=== PATIENT | female | born 1940 | race Caucasian/White ===

== ENCOUNTER 2020-12-22 06:25 | Inpatient (IN) | payer OTHER, MEDICARE ==
[~2020-12-22] VITALS: Ht 162.6 cm; Wt 63.0 kg
[~2020-12-22 06:25] MED LIST: ATOR40TA PO; Cymbalta20 MG PO; GABA300 PO; LISHYD1012 PO; MELO7.5 PO; METF500 PO; SIMV80 PO
--- NOTE | 2020-12-22 06:40 | NUR ---
Ambulatory in Day Surgery. History, Chart, Medications and Allergies reviewed before start of procedure. Lungs clear T/O to Auscultation. Patient confirms NPO status and agrees with scheduled surgery. Pre-Op teaching done. Pt verbalizes understanding.
--- NOTE | 2020-12-22 18:25 | NUR ---
SHIFT SUMMARY PT WAS DROWSY INITIALLY BUT WAS ABLE TO WAKE UP FOR THERAPY. UNFORTUNATLY BECAME DIZZY & VOMITED WHEN THERAPY WORKED WITH HER. PAIN REASONABLY MANAGED. UNABLE TO VOID BLADDER SCAN < 200. IVF CONTINUED.
[2020-12-23 04:11] LABS: BASOPHILS ABSOLUTE AUTO 0.01 K/mm3 (0.00-0.23); BASOPHILS PERCENT AUTO 0 % (0-2); EOSINOPHILS PERCENT AUTO 0 % (0-6); Hematocrit 29.8 % (33.0-51.0); Hemoglobin 9.6 g/dL (11.5-16.0); IMMATURE GRAN ABSOLUTE AUTO 0.02 K/mm3 (0.00-0.10); IMMATURE GRAN PERCENT AUTO 0 % (0-1); LYMPHOCYTES ABSOLUTE AUTO 1.29 K/mm3 (0.84-5.20); LYMPHOCYTES PERCENT AUTO 15 % (21-46); MONOCYTES PERCENT AUTO 10 % (4-13); Mean Corpuscular HGB 29.2 pg (26.0-34.0); Mean Corpuscular HGB Conc 32.2 g/dL (31.5-36.5); Mean Corpuscular Volume 91 fL (80-100); Mean Platelet Volume 10.3 fL (9.1-12.4); NEUTROPHILS ABSOLUTE AUTO 6.62 K/mm3 (1.96-9.15); NEUTROPHILS PERCENT AUTO 75 % (41-73); Platelet Count 194 K/mm3 (150-400); RDW Standard Deviation 46.9 fL (35.1-46.3); Red Blood Cell Count 3.29 M/mm3 (3.80-5.20); White Blood Cell Count 8.84 K/mm3 (4.00-11.30)
[2020-12-23 04:33] LABS: Anion Gap 4 mmol/L (6-16); Blood Urea Nitrogen 19 mg/dL (8-24); Bun/Creatinine Ratio 28.5 (12.0-20.0); CO2, Blood 30 mmol/L (21-32); Calcium, Blood 8.1 mg/dL (8.5-10.1); Chloride, Blood 106 mmol/L (98-108); Creatinine, Blood 0.67 mg/dL (0.40-1.00); Glomerular Filtration Rate >60 (60-); Glucose, Blood 117 mg/dL (70-99); Magnesium, Blood 1.7 mg/dL (1.6-2.4); Potassium, Blood 4.3 mmol/L (3.5-5.5); Sodium, Blood 140 mmol/L (136-145)
--- NOTE | 2020-12-23 06:07 | NUR ---
SHIFT SUMMARY LYING IN SEMI FOWLERS WITH EYES CLOSED. HAS RESTED WELL THIS SHIFT. AA0 X4, ABLE TO FOLLOW ALL COMMANDS. SL PIV FLUIDS AFTER TOLERATING PO INTAKE. CONTINENT OF BOWEL AND BLADDER, ASSISTED WITH AMBULATION TO COMMODE. DENIES N/T TO LEFT ARM, ABLE TO WIGGLE FINGERS, AND GOOD CAP REFILL NOTED. LEFT ARM IMMOBILIZER IN PLACE. DENIES FURTHER NEEDS OR WANTS AT THIS TIME. SAFETY MEASURES IN PLACE. WILL CONTINUE TO MONITOR AND GIVE HAND OFF TO ONCOMING SHIFT USING SBAR.
--- NOTE | 2020-12-23 10:36 | NUR ---
The patient gave me permission to help care for them on 12/23/2020 at 0800.
[2020-12-23] MEDS ORDERED: ACET500 PO (10:45)
[2020-12-23] MEDS ORDERED: OXYC5 PO (10:46)
--- NOTE | 2020-12-23 12:10 | NUR ---
DISCHARGE PT ESCORTED OUT VIA W/C AFTER CLEARING PT & OT. PAIN WELL MANAGED. EATING, DRINKING, & VOIDING EASILY. STEADY GAIT. SCRIPT & DRSGS SENT.
== END 2020-12-23 12:20 | disposition home or self-care (01) | DRG 483 ==
LOC: SURS 06:25 → PRE IP 07:30 → SURS 13:09
PROVIDERS: ADMIT Orthopaedic Surgery
PROC: 0RRK00Z Replacement of Left Shoulder Joint with Reverse Ball and Socket Synthetic Substitute, Open Approach (ICD-10-PCS; principal; 2020-12-22 07:30)
DX: M19.012 Primary osteoarthritis, left shoulder (principal); I10 Essential (primary) hypertension; E78.5 Hyperlipidemia, unspecified
CPT/HCPCS: 36415; 73030; 80048; 82947; 83735; 85025; 88300; 97110; 97116; 97162; 97165; 97530; 97535; A9270; C1713; C1776; J0171; J0690; J0735; J1100; J1170; J1885; J2250; J2370; J2405; J2704; J2710; J2795; J3010; J7120

== ENCOUNTER → 2023-02-14 | Outpatient (CLI) | payer OTHER ==
[~2023-02-14] MED LIST changes: +ACET500 PO; +OXYC5 PO
[2023-02-14 11:44] LABS: BASOPHILS ABSOLUTE AUTO 0.04 K/mm3 (0.00-0.23); BASOPHILS PERCENT AUTO 1 % (0-2); EOSINOPHILS ABSOLUTE AUTO 0.61 K/mm3 (0.00-0.68); EOSINOPHILS PERCENT AUTO 11 % (0-6); Hematocrit 36.7 % (33.0-51.0); Hemoglobin 11.9 g/dL (11.5-16.0); IMMATURE GRAN ABSOLUTE AUTO 0.01 K/mm3 (0.00-0.10); IMMATURE GRAN PERCENT AUTO 0 % (0-1); LYMPHOCYTES ABSOLUTE AUTO 1.57 K/mm3 (0.84-5.20); LYMPHOCYTES PERCENT AUTO 28 % (21-46); MONOCYTES ABSOLUTE AUTO 0.46 K/mm3 (0.16-1.47); MONOCYTES PERCENT AUTO 8 % (4-13); Mean Corpuscular HGB 29.4 pg (26.0-34.0); Mean Corpuscular HGB Conc 32.4 g/dL (31.5-36.5); Mean Corpuscular Volume 91 fL (80-100); Mean Platelet Volume 10.5 fL (9.1-12.4); NEUTROPHILS ABSOLUTE AUTO 2.84 K/mm3 (1.96-9.15); NEUTROPHILS PERCENT AUTO 51 % (41-73); Platelet Count 214 K/mm3 (150-400); RDW Coefficient Variation 13.8 % (11.7-14.2); RDW Standard Deviation 45.9 fL (35.1-46.3); Red Blood Cell Count 4.05 M/mm3 (3.80-5.20); White Blood Cell Count 5.53 K/mm3 (4.00-11.30)
[2023-02-14 12:05] LABS: Albumin, Blood 3.2 g/dL (3.4-5.0); Albumin/Globulin Ratio 0.9 (0.8-1.8); Bilirubin, Total 0.4 mg/dL (0.1-1.0); Bun/Creatinine Ratio 40.3 (12.0-20.0); Calcium, Blood 8.8 mg/dL (8.5-10.1); Creatinine, Blood 0.65 mg/dL (0.40-1.00); Globulin, Blood 3.4 g/dL (2.2-4.0); Potassium, Blood 3.6 mmol/L (3.5-5.5); Total Protein, Blood 6.6 g/dL (6.4-8.2)
== END | disposition home or self-care (01) ==
LOC: LAB SHORT 11:00 → LAB 11:00
PROVIDERS: Physician Assistant
DX: R05.1 Acute cough (principal)
CPT/HCPCS: 80053; 85025

== ENCOUNTER 2023-06-28 09:01 | Day surgery (SDC) | payer OTHER ==
[~2023-06-28] VITALS: Ht 162.6 cm; Wt 61.1 kg
[2023-06-28] MEDS ORDERED: MELO7.5 (09:59)
[2023-06-28] MEDS ORDERED: Flonase 0.05% N16 GM (10:00)
[2023-06-28] MEDS ORDERED: ANORO ELLIPTA1 EACH INH (10:00)
--- NOTE | 2023-06-28 10:15 | NUR ---
06/28/23 1015 Brianne Phillips IN AT 0954 AIDA IN AT [id number]
[2023-06-28 10:48] VITALS: BP 144/58
--- NOTE | 2023-06-28 10:48 | NUR ---
06/28/23 1048 [place] IV REMOVED, CANNULA INTACT PT RJ WELL. IV SITE WNL
== END 2023-06-28 10:57 | disposition home or self-care (01) ==
LOC: ORSCSDS 09:01
PROVIDERS: Student in an Organized Health Care Education/Training Program
PROC: 08RJ3JZ Replacement of Right Lens with Synthetic Substitute, Percutaneous Approach (ICD-10-PCS; principal; 2023-06-28 10:30)
DX: E11.36 Type 2 diabetes mellitus with diabetic cataract (principal); H25.11 Age-related nuclear cataract, right eye; Z96.1 Presence of intraocular lens; I10 Essential (primary) hypertension; R06.02 Shortness of breath; Z79.899 Other long term (current) drug therapy
CPT/HCPCS: 82947; J2250; J3010; J7040; V2632